=== PATIENT | female | born 1990 | race African-American/Black ===

== ENCOUNTER 2022-05-06 16:44 | Emergency (ER) | payer MEDICAID ==
[~2022-05-06] VITALS: Ht 172.7 cm; Wt 77.1 kg
[2022-05-06] MEDS ORDERED: ONDANSETRON HCL/PF 4 MG/2 ML VIAL IVP ONE (17:00)
[2022-05-06] MEDS ORDERED: IV NS 0.9% 1,000 ML BAG IV ONE (17:00)
--- NOTE | 2022-05-06 17:10 | NUR ---
LINDA 89 FROM [place] W/ C/O ABD PAIN RATED 10/10 AND NAUSEA W/ VOMITING X1 PER PATIENT. VERBALIZED THAT SHE ATE CHICKEN AND HAD ABDOMINAL PAIN AFTER EATING. TO ER BED 4.
[2022-05-06] MEDS ORDERED: ONDANSETRON HCL/PF 4 MG/2 ML VIAL ONE (17:12)
[2022-05-06] MEDS ORDERED: MORPHINE SULFATE INJ 4 MG/ML DISP.SYRIN ONE (17:23)
[2022-05-06] MEDS ORDERED: MORPHINE SULFATE INJ 2 MG/ML DISP.SYRIN IV ONE (17:30)
[2022-05-06 17:33] LABS: LYMPHOCYTES # (AUTO) 1.5 K/uL (0.8-4.8); NEUTROPHILS # (AUTO) 5.3 K/uL (1.8-8.9); RED BLOOD CELL COUNT(AUTO) 5.14 MIL/uL (4.0-5.2)
--- NOTE | 2022-05-06 17:33 | NUR ---
IV LINE ESTABLISHED ON RAC #20, BLOOD DRAWN AND SENT TO LAB.
[2022-05-06 17:36] LABS: BASOPHILS % (AUTO) 0.2 % (0.0-2.0); EOSINOPHILS % (AUTO) 1.5 % (0.0-6.0); HEMATOCRIT 39 % (33-45); HEMOGLOBIN 12.4 g/dL (11.5-14.8); LYMPHOCYTES % (AUTO) 20.4 % (20.0-44.0); MEAN CORPUSCULAR HGB CONC 32 g/dl (31.0-36.0); MEAN CORPUSCULAR VOLUME 76 fL (82-100); MONOCYTES # (AUTO) 0.5 K/uL (0.1-1.30); MONOCYTES % (AUTO) 6.6 % (2.0-12.0); NEUTROPHILS % (AUTO) 71.3 % (43.0-81.0); PLATELET COUNT (AUTO) 426 K/uL (150-450); WHITE BLOOD COUNT (AUTO) 7.4 K/uL (4.3-11.0)
[2022-05-06 18:11] LABS: ALBUMIN 3.9 g/dL (3.4-5.0); BILIRUBIN,DIRECT 0.1 mg/dL (0.0-0.2); BILIRUBIN,TOTAL 0.4 mg/dL (0.2-1.0); CALCIUM, SERUM 9.5 mg/dL (8.5-10.1); CREATININE 1.1 mg/dL (0.6-1.3); POTASSIUM 3.4 mmol/L (3.5-5.1); TOTAL PROTEIN, SERUM 7.9 g/dL (6.4-8.2)
--- NOTE | 2022-05-06 19:48 | NUR ---
JV BASEBALL COACH AT BEDSIDE FOR US
--- NOTE | 2022-05-06 19:57 | NUR ---
PT PASSED PO CHALLENGE. MD THOMAS NOTIFIED.
--- NOTE | 2022-05-06 20:19 | NUR ---
IV removed. Catheter intact and site benign. Pressure and 4x4 applied to site. No bleeding noted.Patient discharged to home in stable condition. Written and verbal after care instructions given. Patient verbalizes understanding of instruction.
[2022-05-06 20:53] VITALS: BP 121/75
== END 2022-05-06 20:20 | disposition home or self-care (01) ==
LOC: ER 16:48
DX: R11.10 Vomiting, unspecified (principal); R10.30 Lower abdominal pain, unspecified
CPT/HCPCS: 36415; 76856; 80048; 80076; 83690; 84702; 85025; 96374; 96375; 99284; J2270; J2405; J7030